=== PATIENT | female | born 1960 | race Caucasian/White ===

== ENCOUNTER 2020-06-16 17:38 | Emergency (ER) | payer OTHER ==
[~2020-06-16] VITALS: Ht 160 cm; Wt 56.7 kg
== END 2020-06-16 21:16 | disposition home or self-care (01) ==
LOC: ER 17:38
DX: N39.0 Urinary tract infection, site not specified (principal)

== ENCOUNTER 2023-10-30 18:23 | Emergency (ER) | payer OTHER ==
[~2023-10-30] VITALS: Ht 160 cm; Wt 54.4 kg
[2023-10-30] MEDS ORDERED: KETOROLAC TROMETHAMINE 10 MG TABLET PO ONE (21:00)
[2023-10-30] MEDS ORDERED: KETO10TA2 PO (22:38)
== END 2023-10-30 22:55 ==
LOC: ER 18:24
DX: S92.522A Displaced fracture of middle phalanx of left lesser toe(s), initial encounter for closed fracture (principal); X58.XXXA Exposure to other specified factors, initial encounter; Y93.89 Activity, other specified; Y92.89 Other specified places as the place of occurrence of the external cause; Y99.9 Unspecified external cause status